=== PATIENT | female | born 1990 | race Caucasian/White ===

== ENCOUNTER 2017-08-11 10:51 | Emergency (ER) | payer OTHER ==
[2017-08-11] MEDS: ONDANSETRON 4 MG ORAL DISINTEGRATING TAB (S0181) PO (12:08)
== END 2017-08-11 12:46 | disposition home or self-care (01) ==
LOC: M ED 10:51
DX: R11.2 Nausea with vomiting, unspecified (principal); R19.7 Diarrhea, unspecified; J45.909 Unspecified asthma, uncomplicated; Z91.013 Allergy to seafood
CPT/HCPCS: 87804

== ENCOUNTER → 2017-10-03 | Outpatient (REF) | payer OTHER | LOC: M SFHCLERA 15:51 | DX: R53.81 Other malaise (principal) ==

== ENCOUNTER → 2018-03-11 | Outpatient (CLI) | payer OTHER ==
[2018-03-11 17:42] LABS: THYROID STIMULATING HORMONE 0.723 uIU/ML (0.358-3.740)
== END ==
LOC: M LAB 16:42
DX: F41.9 Anxiety disorder, unspecified (principal)
CPT/HCPCS: 84443

== ENCOUNTER 2018-08-29 18:16 | Emergency (ER) | payer OTHER ==
[~2018-08-29] VITALS: Ht 157.5 cm; Wt 63.6 kg
[~2018-08-29 18:16] MED LIST: /ADVA50050 INH; FLINTSTONE VITAMINS PO; VICO5TAB OR; ZOFR4TAB14 PO; advair; voltaren; voltaren PR
[2018-08-29] MEDS ORDERED: PARO1TAB33 (18:31)
[2018-08-29 19:15] LABS: INFLUENZA A AMPLIFICATION NEGATIVE (NEGATIVE); INFLUENZA B AMPLIFICATION NEGATIVE (NEGATIVE)
[2018-08-29] MEDS ORDERED: IPRATROPIUM 0.5MG/ALBUTEROL 2.5MG INH SOL UD 3ML (DUONEB)(J7620) NEB ONE (19:15)
[2018-08-29] MEDS ORDERED: NS 1,000 ML IV ONE (19:15)
[2018-08-29] MEDS ORDERED: KETOROLAC 30 MG/ML VIAL (J1885) IV ONE (19:15)
[2018-08-29] MEDS ORDERED: ONDANSETRON 4MG/2ML VIAL (J2405) IV ONE (19:15)
[2018-08-29 19:54] LABS: BASO # 0.1 10^3/uL (0.0-0.2); BASO % 0.5 % (0.0-1.0); HEMATOCRIT 42.5 % (36.0-47.0); HEMOGLOBIN 14.5 g/dl (12.0-15.5); MEAN CORPUSCULAR HGB CONC 34.1 g/dl (32.0-36.5); MEAN CORPUSCULAR VOLUME 93.8 fl (80.0-96.0); MONO # 0.3 10^3/uL (0.0-0.8); MONO % 2.6 % (0.0-5.0); NEUTROPHILS # 10.7 10^3/uL (1.8-7.7); NEUTROPHILS % 88.6 % (36.0-66.0); PLATELET COUNT, AUTOMATED 283 10^3/uL (150-450); RED BLOOD COUNT 4.53 10^6/uL (4.00-5.40); WHITE BLOOD COUNT 12.1 10^3/uL (4.0-10.0)
[2018-08-29 20:17] LABS: ALBUMIN 4.4 GM/DL (3.2-5.2); ALT/SGPT 34 U/L (12-78); BILIRUBIN,DIRECT 0.1 MG/DL (0.0-0.2); BILIRUBIN,TOTAL 0.5 MG/DL (0.2-1.0); BLOOD UREA NITROGEN 13 MG/DL (7-18); CALCIUM LEVEL 9.5 MG/DL (8.5-10.1); CARBON DIOXIDE LEVEL 26 MEQ/L (21-32); CHLORIDE LEVEL 103 MEQ/L (98-107); CREATININE FOR GFR 0.75 MG/DL (0.55-1.30); GLOMERULAR FILTRATION RATE > 60.0 (>60); GLUCOSE, FASTING 93 MG/DL (70-100); LIPASE 91 U/L (73-393); POTASSIUM SERUM 4.1 MEQ/L (3.5-5.1); SODIUM LEVEL 138 MEQ/L (136-145); TOTAL PROTEIN 7.5 GM/DL (6.4-8.2)
[2018-08-29] MEDS ORDERED: ISOVUE-370 76% 100ML VIAL (Q9967) As Ordered ONE (20:26)
--- NOTE | 2018-08-29 21:13 | REPVR ---
EXAM: CT Abdomen and Pelvis With Contrast EXAM DATE/TIME: 08/29/2018 8:28 PM CLINICAL HISTORY: 28 years old, female; Pain; Abdominal pain; Localized; Right lower quadrant (rlq); Additional info: Rlq pain TECHNIQUE: Axial computed tomography images of the abdomen and pelvis with intravenous contrast. All CT scans at this facility use at least one of these dose optimization techniques: automated exposure control; mA and/or kV adjustment per patient size (includes targeted exams where dose is matched to clinical indication); or iterative reconstruction. Coronal and sagittal reformatted images were created and reviewed. CONTRAST: 100 ml of ISOVUE 370 administered intravenously. COMPARISON: No relevant prior studies available. FINDINGS: Lower thorax: Clear lung bases. ABDOMEN: Liver: Normal appearing liver. Gallbladder and bile ducts: Normal gallbladder. Normal common bile duct. Pancreas: Normal pancreas. Spleen: Normal spleen. Adrenals: Normal adrenal glands. Kidneys and ureters: Normal kidneys. Stomach and bowel: The cecum is in the right pelvis. There is no evidence of inflammation along the margins of the cecum. The appendix cannot be identified with certainty. If there is continued concern regarding the appendix a CT scan with oral contrast might be helpful. PELVIS: Bladder: Urinary bladder is empty. Reproductive: There is a cyst of the left ovary probably a follicular cyst measuring 2.5 CM. There are follicular cysts in the right ovary. There is prominence of the uterus. There is thickening of the endometrium at approximately 2.4 CM. This may include some fluid within the endometrial cavity. ABDOMEN and PELVIS: Intraperitoneal space: There is no evidence of pneumoperitoneum. There is no evidence of free fluid in the abdomen. Bones/joints: There is prominent posterior disc osteophyte complex T12-L1 and at L2-L3 and at T9- T10. Vasculature: There is opacification of the aorta and normal in size. There is opacification of the SMV and the SMA. Lymph nodes: Normal. No enlarged lymph nodes. Other findings: Correlation with ultrasound should be considered. IMPRESSION: 1. No evidence of inflammation in the region of the cecum. The appendix cannot be identified. If there is continued concern regarding the appendix a CT scan with oral contrast could be considered. 2. Enlargement of the uterus. The endometrium measuring approximately 2.5 CM possibly secretory type endometrium with fluid within the center. Correlation with ultrasound should be considered. 3. 2.4 CM dominant cyst left ovary. Follicular cysts right ovary. Electronically signed by: Kade Kay On 08/29/2018 21:13:13 PM
[2018-08-29] MEDS ORDERED: methylPREDNISolone INJ 125 MG/2 ML VIAL (J2930) IV ONE (23:00)
[2018-08-30 00:21] VITALS: BP 112/58
[2018-08-30] MEDS ORDERED: ONDA4TAB6 PO (00:26)
[2018-08-30] MEDS ORDERED: PRED20TA PO (00:26)
[2018-08-30] MEDS ORDERED: VENTAER INH (00:26)
--- NOTE | 2018-08-30 01:08 | REPVR ---
EXAM: US Pelvis Complete, Transabdominal EXAM DATE/TIME: 08/29/2018 11:51 PM CLINICAL HISTORY: 28 years old, female; Pain and abnormal findings; Abnormal imaging test; Abdominal pain; Lower abdomen; Additional info: Lower abd pain TECHNIQUE: Real-time transabdominal pelvic ultrasound with image documentation. Complete exam. COMPARISON: CT ABD/PEL W/IV CONTRAST ONLY 08/29/2018 8:21 PM FINDINGS: Uterus/cervix: Anteverted uterus measuring 9.5 x 4.8 x 6.3 cm. Endometrial thickness is normal measuring 10.9 mm. Trace endometrial fluid. 2.1 mm calcification is seen in the myometrium, nonspecific. Right adnexa: Right ovary is unremarkable measuring 2.4 x 1.9 x 3.0 cm. No evidence of mass or cyst. Normal vascular flow. Left adnexa: Left ovary measures 3.8 x 2.7 x 2. 8 cm. 1.3 dominant follicle in left ovary. Free fluid: Small amount of fluid seen at scar. Bladder: Normal. IMPRESSION: Trace endometrial fluid. Dominant follicle in left ovary. Small amount of fluid seen at scar. Electronically signed by: Kari Rodrigues On 08/30/2018 01:07:36 AM
--- NOTE | 2018-08-30 07:14 | REP ---
Clinical: Cough and wheeze . Comparison: 07/11/2015 . Technique: PA and lateral. Findings: The mediastinum and cardiac silhouette are normal. The lung krishna are clear and without acute consolidation, effusion, or pneumothorax. The skeletal structures are intact and normal. Impression: 1. No acute cardiopulmonary process. Electronically Signed by Michel Pitt MD 08/30/2018 07:06 A
--- NOTE | 2018-08-30 07:26 | ED PDOC ---
Post-Departure Follow-Up dr king faxed formal report of ct abd/p for fu Raz Claros MD Aug 30, 2018 07:26
== END 2018-08-30 00:38 | disposition home or self-care (01) ==
LOC: M ED 18:16
DX: N85.2 Hypertrophy of uterus (principal); J45.901 Unspecified asthma with (acute) exacerbation; R11.10 Vomiting, unspecified; N83.02 Follicular cyst of left ovary; F41.9 Anxiety disorder, unspecified; Z72.0 Tobacco use; Z79.899 Other long term (current) drug therapy; Z91.013 Allergy to seafood
CPT/HCPCS: 71046; 74177; 76830; 76856; 80048; 80076; 81001; 81025; 83690; 85025; 87502; 93976; 94640; 96374; 96375; 99284; J1885; J2405; J2930; Q9967

== ENCOUNTER 2020-09-27 05:54 | Emergency (ER) | payer OTHER ==
[~2020-09-27] VITALS: Ht 157.5 cm; Wt 63.9 kg
[~2020-09-27 05:54] MED LIST changes: -/ADVA50050 INH; +ADVA1AER2 INH; +ONDA4TAB6 PO; +PARO1TAB33; +PRED20TA PO; +VENTAER INH
[2020-09-27] MEDS ORDERED: LEXA1TAB PO (06:02)
[2020-09-27] MEDS ORDERED: ONDANSETRON 4MG/2ML VIAL As Ordered ONE (06:22)
[2020-09-27] MEDS ORDERED: NS 1,000 ML IV ONE (06:30)
[2020-09-27] MEDS ORDERED: ONDANSETRON 4MG/2ML VIAL IV ONE (06:30)
[2020-09-27 06:31] LABS: BASO # 0.1 10^3/uL (0.0-0.2); BASO % 0.5 % (0.0-1.0); EOS % 0.2 % (0.0-3.0); HEMATOCRIT 43.5 % (36.0-47.0); HEMOGLOBIN 14.4 g/dl (12.0-15.5); LYMPH # 1.1 10^3/uL (1.5-5.0); LYMPH % 10.9 % (24.0-44.0); MEAN CORPUSCULAR HEMOGLOBIN 31.6 pg (27.0-33.0); MEAN CORPUSCULAR HGB CONC 33.1 g/dl (32.0-36.5); MEAN CORPUSCULAR VOLUME 95.6 fl (80.0-96.0); MONO # 0.5 10^3/uL (0.0-0.8); MONO % 5.4 % (2.0-8.0); NEUTROPHILS % 82.5 % (36.0-66.0); PLATELET COUNT, AUTOMATED 251 10^3/uL (150-450); RED BLOOD COUNT 4.55 10^6/uL (4.00-5.40); WHITE BLOOD COUNT 9.7 10^3/uL (4.0-10.0)
[2020-09-27] MEDS ORDERED: ALBUTEROL 90 MCG/ACT 8GM HFA INHALER INH ONE ×2 (06:40→08:35)
[2020-09-27 07:07] LABS: ALBUMIN 4.5 GM/DL (3.2-5.2); ALT/SGPT 22 U/L (12-78); BILIRUBIN,DIRECT 0.2 MG/DL (0.0-0.2); BILIRUBIN,TOTAL 0.6 MG/DL (0.2-1.0); HCG, SERUM QUANTITATIVE < 1.0 MIU/ML; LIPASE 70 U/L (73-393)
--- NOTE | 2020-09-27 07:15 | REPVR ---
PROCEDURE INFORMATION: Exam: XR Chest Exam date and time: 09/27/2020 6:45 AM Age: 30 years old Clinical indication: Other: Cough; Additional info: Wheezing, cough TECHNIQUE: Imaging protocol: XR of the chest Views: 1 view. COMPARISON: CR Chest, 2 view PA, Lat 08/29/2018 8:09 PM FINDINGS: Lungs: The lungs are mildly hyperinflated, but clear. Pleural spaces: Unremarkable. No pleural effusion. No pneumothorax. Heart/Mediastinum: The cardiomediastinal silhouette is fairly stable in appearance, allowing for differences in technique. Bones/joints: Unremarkable. IMPRESSION: Mildly hyperinflated, but clear lungs. Electronically signed by: Christopher Johnston On 09/27/2020 07:15:22 AM
[2020-09-27 08:00] VITALS: O2SAT 98
[2020-09-27] MEDS ORDERED: methylPREDNISolone 125MG 2ML VIAL IV ONE (08:35)
[2020-09-27] MEDS ORDERED: MEDR4PAK PO (09:20)
[2020-09-27] MEDS ORDERED: PROM12.56 PO (09:34)
[2020-09-27 09:46] VITALS: BP 135/72
--- NOTE | 2020-09-28 08:04 | ECGEPIP ---
[facility] - ED Test Date: 2020-09-27 Pat Name: NORBERTO CORDOVA Department: Room: - Gender: Female [employer] Filler: JOSE M : 1990 Requested By: MARÍA Kearney PA-C Order Number: [id number] Reading MD: Laurence Ribera Measurements Intervals [place] Rate: 77 P: 61 KS: 148 QRS: 33 QRSD: 88 T: 25 QT: 398 QTc: 450 Interpretive Statements Normal sinus rhythm with sinus arrhythmia NSTTW abnormalities No prior Electronically Signed on 09-28-2020 8:03:47 EST by Laurence Ribera
== END 2020-09-27 09:56 | disposition home or self-care (01) ==
LOC: M ED 05:54
DX: J45.901 Unspecified asthma with (acute) exacerbation (principal); R10.84 Generalized abdominal pain; R11.2 Nausea with vomiting, unspecified; R19.7 Diarrhea, unspecified; F41.9 Anxiety disorder, unspecified; K21.9 Gastro-esophageal reflux disease without esophagitis; Z91.018 Allergy to other foods; Z79.899 Other long term (current) drug therapy; F17.210 Nicotine dependence, cigarettes, uncomplicated
CPT/HCPCS: 71045; 80047; 80076; 83690; 84702; 85025; 87804; 93005; 94640; 96361; 96374; 96375; 99284; J2405; J2930; U0003

== ENCOUNTER → 2020-12-03 | Outpatient (REF) | payer OTHER ==
[~2020-12-03] MED LIST changes: +LEXA1TAB PO; +MEDR4PAK PO; +PROM12.56 PO
== END ==
LOC: M SFHCPLAZ 11:37
PROVIDERS: ATTEND Family Medicine
DX: F32.2 Major depressive disorder, single episode, severe without psychotic features (principal)

== ENCOUNTER → 2021-02-04 | Outpatient (REF) | payer OTHER | LOC: M SFHCPLAZ 14:39 | PROVIDERS: ATTEND Family Medicine | DX: F32.2 Major depressive disorder, single episode, severe without psychotic features (principal) ==

== ENCOUNTER → 2021-08-28 | Outpatient (CLI) | payer OTHER | LOC: M CARPUL 14:52 | PROVIDERS: ATTEND Student in an Organized Health Care Education/Training Program | DX: R06.02 Shortness of breath (principal) ==

== ENCOUNTER → 2021-09-16 | Outpatient (CLI) | payer OTHER | LOC: M RAD 10:18 | PROVIDERS: ATTEND Student in an Organized Health Care Education/Training Program | DX: R06.02 Shortness of breath (principal); F32.2 Major depressive disorder, single episode, severe without psychotic features ==

== ENCOUNTER 2023-01-09 13:48 | Emergency (ER) | payer OTHER ==
[~2023-01-09] VITALS: Ht 157.5 cm; Wt 58.0 kg
[2023-01-09] MEDS ORDERED: BENZONATATE 100MG CAPSULE PO ONE (14:35)
[2023-01-09] MEDS ORDERED: LEVALBUTEROL HFA 45MCG/ACT 15GM INHALER INH ONE (15:50)
[2023-01-09] MEDS ORDERED: predniSONE 20 MG TAB PO ONE (15:50)
[2023-01-09] MEDS ORDERED: LEVAINH INH (16:36)
[2023-01-09] MEDS ORDERED: AMOX500T PO (16:36)
[2023-01-09] MEDS ORDERED: PRED20TA PO (16:36)
[2023-01-09] MEDS ORDERED: BENZ200C70 PO (16:36)
[2023-01-09 16:56] VITALS: BP 127/67; TEMP 97.3; O2SAT 97
== END 2023-01-09 16:59 | disposition home or self-care (01) ==
LOC: M ED 13:48
DX: J20.9 Acute bronchitis, unspecified (principal); J45.901 Unspecified asthma with (acute) exacerbation; Z91.013 Allergy to seafood; Z79.51 Long term (current) use of inhaled steroids; Z79.899 Other long term (current) drug therapy; Z79.52 Long term (current) use of systemic steroids
CPT/HCPCS: 71046; 87428; 94640; 99283; J7512